=== PATIENT | male | born 1990 | race Caucasian/White ===

== ENCOUNTER 2017-09-11 08:18 | Emergency (ER) | payer BC ==
[2017-09-11 08:45] VITALS: BP 136/90
--- NOTE | 2017-09-11 08:58 | ED Physician Documentation ---
Nausea/Vomiting/Diarrhea - HISTORIAN Historian: patient - HPI Stated Complaint: N/V for 12hrs Chief Complaint: Nausea,Vomiting,Diarrhea Onset: hours (12 hours) Duration: constant Severity: moderate - Associated Symptoms Vomiting: frequent (6 times) Diarrhea: mild Abdominal Pain: cramping - ROS CONST: chills. denies: fever - PAST HX Past History: none Surgeries/Procedures: appendectomy Immunizations: referred to PCP Allergies/Adverse Reactions: Allergies Allergy/AdvReac Type Severity Reaction Status Date / Time amoxicillin Allergy Verified 09/11/17 08:42 Home Medications: Ambulatory Orders Medication Instructions Recorded Ondansetron HCl Rapdis [Zofran Odt] 4 mg PO Q6 PRN #10 tab 09/11/17 Ondansetron HCl Rapdis [Zofran Odt] 4 mg PO Q6 PRN #20 tab 09/11/17 - SOCIAL HX Smoking History: non-smoker Alcohol Use: none Drug Use: none - FAMILY HX Family History: none - VITAL SIGNS Vital Signs: Vital Signs Temp Pulse Resp BP Pulse Ox 98.2 F 117 H 16 136/90 97 09/11/17 11:35 09/11/17 11:35 09/11/17 11:35 09/11/17 11:35 09/11/17 11:35 - REVIEWED ASSESSMENTS Nursing Assessment Reviewed: Yes Vitals Reviewed: Yes Progress - Progress Progress: 10:09 Nausea is improved. IV is running in. 11:25 Patient is becoming nauseated again, will give more zofran ED Results Lab/Radiology - Lab Results Lab Results: Lab Results 09/11/17 09/11/17 09:15 09:15 WBC 13.00 K/ul H K/ul (4.00-12.00) RBC 5.56 M/ul H M/ul (3.90-5.20) Hgb 16.9 g/dL g/dL (12.0-18.0) Hct 48.8 % % (37.0-53.0) MCV 87.8 fl fl (80.0-100.0) MCH 30.5 pg pg (28.0-34.0) MCHC 34.7 g/dL g/dL (30.0-36.0) RDW 13.6 % % (11.3-14.3) Plt Count 226 K/mm3 K/mm3 (130-400) Seg Neutrophils % 92 % H % (39-79) Band Neutrophils % 2 % % (0-12) Lymphocytes % 3 % L % (16-50) Monocytes % 3 % % (0-11) Plt Morphology Comment Normal (NORMAL) RBC Morph Comment Normal (NORMAL) Sodium 145 mmol/L mmol/L (136-145) Potassium 4.0 mmol/L mmol/L (3.5-5.1) Chloride 108 mmol/L H mmol/L (98-107) Carbon Dioxide 23 mmol/L mmol/L (22-30) BUN 12 mg/dL mg/dL (9-20) Creatinine 0.60 mg/dL L mg/dL (0.66-1.25) Estimated Creat Clear 350 Est GFR ( Amer) > 60 (60 - ) Est GFR (Non-Af Amer) > 60 (60 - ) Glucose 81 mg/dL mg/dL (74-106) Calcium 9.6 mg/dL mg/dL (8.4-10.2) Total Bilirubin 1.0 mg/dL mg/dL (0.2-1.3) AST 21 U/L U/L (15-46) ALT 29 U/L U/L (13-69) Alkaline Phosphatase 58 U/L U/L (38-126) Total Protein 7.9 g/dL g/dL (6.3-8.2) Albumin 4.3 g/dL g/dL (3.5-5.0) - Orders Orders: ED Orders Category Date Time Status Place IV Lock 1T Care 09/11/17 09:02 Active CBC/PLATELET/DIFF Routine Lab 09/11/17 09:15 Completed CMP Routine Lab 09/11/17 09:15 Completed 0.9 % Sodium Chloride [Normal Saline] 1,000 ml Med 09/11/17 09:30 Discontinued IV .Q1H 0.9 % Sodium Chloride [Normal Saline] 1,000 ml Med 09/11/17 09:16 Discontinued IV .STK-MED Ondansetron HCl/Pf [Zofran 4 mg/2 ml] Med 09/11/17 09:22 Discontinued 4 mg .ROUTE .STK-MED ONE Ondansetron HCl/Pf [Zofran 4 mg/2 ml] Med 09/11/17 09:21 Discontinued 4 mg IVP NOW ONE Ondansetron HCl/Pf [Zofran 4 mg/2 ml] Med 09/11/17 11:24 Discontinued 4 mg IVP NOW ONE Nausea Physical Exam - EXAM General Appearance: alert, mild distress EENT: ENT inspection normal, pharynx normal, no signs of dehydration Neck: normal inspection, supple. No: lymphadenopathy, stiff neck Respiratory: no resp distress, chest non-tender, breath sounds normal. No: wheezes, rales, rhonchi CVS: reg rate & rhythm, heart sounds normal, equal pulses, no murmur, no gallop Abdomen: no organomegaly, tenderness (mild diffuse), abnml bowel sounds (mildly hyperactive). No: guarding, rebound Back: No: vertebral point-tendernes, CVA tenderness Skin: warm/dry, normal color Neuro/Psych: mood/affect nml, cognition normal Discharge Clincal Impression: Viral gastroenteritis Prescriptions: Ondansetron HCl Rapdis [Zofran Odt] 4 mg PO Q6 PRN #10 tab PRN Reason: Nausea / Vomiting Ondansetron HCl Rapdis [Zofran Odt] 4 mg PO Q6 PRN #20 tab PRN Reason: Nausea / Vomiting Referrals: Primary Doctor,No [Primary Care Provider] - 2 Days Additional Instructions: Take Zofran as needed to help with nausea. Clear liquids for the next 12-24 hours. Start with small sips as instructed. If not doing better in 48 hours to follow-up with your primary care provider or return to the ED. Condition: Stable Disposition: 01 HOME, SELF-CARE Decision to Admit: NO Date of Decison to Admit: 09/11/17 Decision Time: 11:28
[2017-09-11] MEDS ORDERED: 0.9 % SODIUM CHLORIDE 1,000 ML IV ONE (09:16)
[2017-09-11] MEDS: 0.9 % SODIUM CHLORIDE 1,000 ML IV SCH (09:21)
[2017-09-11] MEDS: ONDANSETRON HCL/PF 4 MG/ 2ML VIAL ONE (09:30)
[2017-09-11] MEDS: ONDANSETRON HCL/PF 4 MG/ 2ML VIAL IVP ONE ×2 (09:38→11:35)
[2017-09-11 09:50] LABS: MEAN CORPUSCULAR HEMOGLOBIN 30.5 pg (28.0-34.0); MEAN CORPUSCULAR VOLUME 87.8 fl (80.0-100.0)
[2017-09-11 10:01] LABS: eGFR (African) > 60; eGFR (Non-African) > 60
[2017-09-11 10:16] LABS: MONOCYTES % 3 % (0-11); SEGMENTED NEUTROPHILS % 92 % (39-79)
== END 2017-09-11 11:35 | disposition home or self-care (01) ==
LOC: ED 08:18
DX: A80 Acute poliomyelitis (principal)
CPT/HCPCS: 80053; 85025; J2405; J7030; 96360; 96374; S1016